=== PATIENT | male | born 1965 | race Caucasian/White ===

== ENCOUNTER 2019-12-20 23:35 | Inpatient (IN) | payer MEDICAID, OTHER ==
[~2019-12-20] VITALS: Ht 180.3 cm; Wt 87.6 kg
[2019-12-21] VITALS (7 sets, daily range): BP systolic 114–145; BP diastolic 63–102
[2019-12-21] MEDS ORDERED: IBUPROFEN 600 MG TAB PO ONE
[2019-12-21] MEDS ORDERED: InsuLIN REG 1unit/0.01ml Soln (100units/ml) IV ONE (00:15)
[2019-12-21] MEDS ORDERED: SODIUM CHLORIDE 0.9% 1,000 ML IV ONE ×2 (00:15→01:30)
[2019-12-21 00:35] LABS: Basophils # (auto) 0.1 10 ^3/uL (0-0.2); Basophils % (auto) 0.7 % (0.0-2.0); Eosinophils # (auto) 0 10 ^3/uL (0-0.8); Eosinophils % (auto) 0.4 % (0.0-7.0); Hematocrit 43.2 % (41.0-53.0); Hemoglobin 15.1 g/dL (13.5-17.5); Lymphocytes # (auto) 1.2 10 ^3/uL (0.4-5.4); Lymphocytes % (auto) 11.5 % (10.0-50.0); Mean Corpuscular Hgb Conc. 34.9 g/dL (32.0-36.0); Mean Corpuscular Volume 80.3 fL (80.0-100.0); Monocytes # (auto) 1.4 10 ^3/uL (0-1.3); Monocytes % (auto) 13.3 % (0.0-12.0); Neutrophils # (auto) 7.6 10 ^3/uL (1.6-8.6); Neutrophils % (auto) 74.1 % (37.0-80.0); Nucleated Red Blood Cells % 0.2 %; Platelet Count (auto) 133 10^3/uL (140-450); Red Blood Cells 5.37 10^6/uL (4.5-5.90); Red Cell Distribution Width 16.2 % (11.8-14.3); White Blood Cell 10.3 10^3/uL (4.4-10.8)
[2019-12-21 00:54] LABS: Alanine Aminotransferase 63 U/L (16-61); Albumin 2.7 g/dL (3.4-5.0); Amylase 46 U/L (25-115); Anion Gap 8 (5-15); Aspartate Aminotransferase 32 U/L (15-37); BUN/Creatinine Ratio 17.5; Blood Urea Nitrogen 18 mg/dL (7-18); Calcium 7.9 mg/dL (8.5-10.1); Carbon Dioxide 25 mmol/L (21-32); Chloride 95 mmol/L (98-107); GFR African American 96 mL/min; GFR Non-African American 79 mL/min; Glucose 370 mg/dL (74-106); Lipase 417 U/L (73-393); Potassium 3.8 mmol/L (3.5-5.1); Sodium 128 mmol/L (136-145)
[2019-12-21 00:59] LABS: Lactic Acid w/Reflex 3.1 mmol/L (0.4-2.0)
[2019-12-21 01:00] LABS: Alkaline Phosphatase 141 U/L (45-117); Bilirubin, Total 1.5 mg/dL (0.2-1.0); Total Protein 7.2 g/dL (6.4-8.2)
[2019-12-21] MEDS ORDERED: PIPERACILLIN-TAZOB 3.375GM 100 ML IV ONE (01:30)
[2019-12-21] MEDS ORDERED: VANCOMYCIN 1GM/250ML 250 ML IV ONE (01:30)
[2019-12-21 01:48] LABS: Urine Bacteria MANY /hpf (None Seen); Urine Blood 1+ /uL (Negative); Urine Specific Gravity 1.017 (1.001-1.035); Urine WBC 139 /hpf (0 - 3)
[2019-12-21] MEDS ORDERED: MORPHINE SULFATE 4 MG/ML SYR/VIAL IV ONE (02:00)
[2019-12-21] MEDS ORDERED: ONDANSETRON HCL 4 MG/2 ML VIAL IV ONE (02:00)
[2019-12-21] MEDS ORDERED: ACETAMINOPHEN 325 MG TAB PO ONE (02:00)
[2019-12-21] MEDS ORDERED: DEXTROSE (50%) 50ML SYRG IV PRN ×2 (02:45→10:15)
[2019-12-21] MEDS ORDERED: SODIUM CHLORIDE 0.9% 1,000 ML IV SCH (02:45)
[2019-12-21] MEDS ORDERED: VANCOMYCIN PER PHARMACY 0 MG IV SCH (02:45)
[2019-12-21] MEDS ORDERED: MORPHINE SULF INJ 2 MG/ML SYRINGE 1ML IV PRN (02:45)
[2019-12-21] MEDS ORDERED: ONDANSETRON HCL 4 MG/2 ML VIAL IV PRN (02:45)
[2019-12-21] MEDS ORDERED: NITROGLYCERIN 0.4 MG SL TAB SL PRN (02:45)
[2019-12-21] MEDS ORDERED: InsuLIN REG 1unit/0.01ml Soln (100units/ml) SC SCH (06:00)
[2019-12-21] MEDS ORDERED: metroNIDAZOLE 500MG/100ML 100 ML IV SCH (06:00)
[2019-12-21] MEDS ORDERED: METF-370 PO (06:11)
[2019-12-21] MEDS: ACCU-CHEK COMFORT CURVE STRIP VI SCH ×6 (06:12→21:05)
--- NOTE | 2019-12-21 07:25 | NUR ---
Opening Shift Note Assumed care of patient, awake and alert, No S/S of distress/SOB or pain. Respirations are even and unlabored. Updated on POC and instructed to call for assistance, patent verbalized understanding. Bed locked in lowest position, call light within reach, side rails up x2, safety precautions in place. Will continue to monitor for changes Q1hr and PRN.
--- NOTE | 2019-12-21 08:14 | NUR ---
left message with [facility]. no one able to take the call due to the holiday.
--- NOTE | 2019-12-21 08:53 | NUR ---
SPOKE WITH UROLOGIST DR. FREDDIE SALAZAR MD ON CT RESULTS, RECEIVED ORDERS TO PLACE 18F COUDE COOPER CATHETER IF PATIENT IS UNABLE TO VOID. PAIN MANAGEMENT AT THIS TIME, NO FURTHER ORDERS.
[2019-12-21] MEDS ORDERED: cefTRIAXone 1GM/50ML D5W 50 ML IV SCH ×2 (09:00)
--- NOTE | 2019-12-21 09:07 | NUR ---
URINE SENT TO LAB.
[2019-12-21] MEDS: PANTOPRAZOLE 40 MG TAB PO SCH (09:21)
[2019-12-21] MEDS: LACTULOSE 20Gm/30ML SOLN PO SCH (09:21)
[2019-12-21] MEDS: HYDROcodone-ACET 5/325MG TAB PO PRN ×2 (09:28→18:49)
[2019-12-21] MEDS: SODIUM CHLORIDE 0.9% 1,000 ML IV SCH ×2 (10:15→18:13)
[2019-12-21] MEDS ORDERED: TAMSULOSIN HYDROCHLORIDE 0.4 MG CAP PO ONE (10:15)
[2019-12-21] MEDS ORDERED: VANCOMYCIN 1,250 MG in D5W 5% 250 ML IV SCH (11:00)
--- NOTE | 2019-12-21 11:03 | NUR ---
DOWNGRADE TO [facility] TELE BOX SENT BACK TO ICU.
--- NOTE | 2019-12-21 11:50 | NUR ---
Nutrition Assessment Notes Please refer to link for full assessment notes. Est Energy needs: 4645-0573 kcals (25-30 kcal/kgBW) Est Protein needs: 56-70 gms/day (0.8-1.0 gm/kgBW) Will continue to monitor and reassess prn. Addendum: 12/21/19 at [address] Amended: Links added.
[2019-12-21] MEDS: InsuLIN REG 1unit/0.01ml Soln (100units/ml) SC SCH ×3 (12:13→21:08)
[2019-12-21] MEDS: MORPHINE SULF INJ 2 MG/ML SYRINGE 1ML IV PRN ×2 (12:25→23:31)
[2019-12-21] MEDS ORDERED: VANCOMYCIN 750mg/250ml 250 ML IV SCH (13:00)
--- NOTE | 2019-12-21 15:18 | NUR ---
PATIENT ROUNDS PATIENT IS RESTING WITH EYES CLOSED, NO S/S OF DISTRESS OR SOB. WILL CONTINUE TO MONITOR Q1HR AND PRN.
[2019-12-21] MEDS: ACETAMINOPHEN 325 MG TAB PO PRN (17:52)
[2019-12-21] MEDS: TAMSULOSIN HYDROCHLORIDE 0.4 MG CAP PO SCH (17:54)
--- NOTE | 2019-12-21 18:13 | NUR ---
PATIENT PULLED OUT IV BY ACCIDENT UPON ROUNDS, FOUND PATIENTS IV LAYING IN THE BED NEXT TO HIM. PATIENT UNAWARE. WILL ATTEMPT TO REINSERT IV.
[2019-12-21] MEDS ORDERED: MANNITOL FTV 25% 12.5 GM/50 ML 50 ML IV ONE (20:30)
--- NOTE | 2019-12-21 20:30 | NUR ---
IV insertion IV access obtained, via clean sterile technique by inserting 22 gauge catheter at left hand on first attempt. IV secured properly. No trauma to site. Patient tolerated well.
--- NOTE | 2019-12-21 21:41 | NUR ---
RECEIVED CALL FROM LAB REPORTING GRAM + COCCI IN CLUSTERS. WILL PAGE ON-CALL HOSP.
--- NOTE | 2019-12-21 21:55 | NUR ---
ON-CALL HOSP PAGED ON-CALL HOSP PAGED. AWAITING CALL BACK. WILL CONTINUE TO MONITOR.
--- NOTE | 2019-12-21 21:58 | NUR ---
RECEIVED CALL BACK FROM MD TALAMANTES UPDATED MD ON PATIENT'S NEW MICRO REPORT, PERSISTENT TEMPERATURE 100.1 ORAL F (FOR WHICH PATIENT RECENTLY INITIATED ON COOLING MEASURES AND FOR WHICH TYLENOL IS NOT DUE), AND URINALYSIS. UPDATED MD ON CURRENT ANTIBIOTIC. RECEIVED NEW ORDER, READ BACK AND VERIFIED. WILL CARRY OUT. WILL CONTINUE TO MONITOR PATIENT.
--- NOTE | 2019-12-21 22:00 | NUR ---
TEMP PATIENT'S ORAL TEMP 100 F ORAL. PRN FOR TYLENOL NOT YET DUE. ICE PACKS, BLANKETS REMOVED, ROOM COOLED. WILL CONTINUE TO MONITOR.
--- NOTE | 2019-12-21 22:06 | NUR ---
Merrem not available in orders Called after-hours pharmacy to request medication order. Pharmacist stated he will "enter into profile to start now and every 8 hours" and "discontinue Rocephin", per MD order. Will contact hot car charger to obtain medication.
[2019-12-21] MEDS ORDERED: MEROPENEM 1GM IVPB 50 ML IV SCH (22:15)
[2019-12-21] MEDS ORDERED: MEROPENEM 1GM IVPB 100 ML IV ONE (22:19)
[2019-12-21] MEDS: MEROPENEM 1GM IVPB 100 ML IV SCH (22:33)
--- NOTE | 2019-12-21 23:00 | NUR ---
TEMP RECHECK PATIENT ORAL TEMP 98.3. WILL CONTINUE TO MONITOR.
--- NOTE | 2019-12-21 23:00 | NUR ---
urine output via urinal 600ml clear medium-dark yellow urine. Will continue to monitor.
[2019-12-22] MEDS: SODIUM CHLORIDE 0.9% 1,000 ML IV SCH ×3 (00:56→17:49)
--- NOTE | 2019-12-22 02:00 | NUR ---
URINE OUTPUT 3OO ML OUTPUT LIGHT PADMA CLEAR URINE VIA. NO BLADDER DISTENSION. WILL CONTINUE TO MONITOR.
[2019-12-22] MEDS: HYDROcodone-ACET 5/325MG TAB PO PRN ×3 (02:49→13:11)
[2019-12-22] MEDS: ACETAMINOPHEN 325 MG TAB PO PRN ×3 (04:25→23:05)
--- NOTE | 2019-12-22 04:25 | NUR ---
TEMP PATIENT ORAL TEMP 100.8. INSTRUCTED PATIENT ON PURPOSE/INDICATION FOR INITIATING COOLING MEASURES AT THIS TIME, PATIENT VERBALIZED UNDERSTANDING AND IN AGREEMENT. SEE EMAR FOR ADMINISTRATION. WILL CONTINUE TO MONITOR.
[2019-12-22 05:00] VITALS: BP 122/75
--- NOTE | 2019-12-22 05:00 | NUR ---
URINE OUTPUT 325 ML URINE OUTPUT CLEAR LIGHT PADMA. NO BLADDER DISTENSION. NO C/O DISCOMFORT. WILL CONTINUE TO MONITOR.
[2019-12-22] MEDS: MEROPENEM 1GM IVPB 100 ML IV SCH (05:15)
--- NOTE | 2019-12-22 05:25 | NUR ---
TEMP RECHECK PATIENT'S ORAL TEMP 98.8 F. WILL CONTINUE TO MONITOR.
[2019-12-22] MEDS: ACCU-CHEK COMFORT CURVE STRIP VI SCH ×4 (06:00→21:45)
[2019-12-22] MEDS: InsuLIN REG 1unit/0.01ml Soln (100units/ml) SC SCH ×4 (06:03→22:00)
[2019-12-22] MEDS: MORPHINE SULF INJ 2 MG/ML SYRINGE 1ML IV PRN ×4 (06:06→21:41)
[2019-12-22 06:26] LABS: Basophils # (auto) 0 10 ^3/uL (0-0.2); Basophils % (auto) 0.5 % (0.0-2.0); Eosinophils # (auto) 0.1 10 ^3/uL (0-0.8); Eosinophils % (auto) 0.6 % (0.0-7.0); Hematocrit 35.8 % (41.0-53.0); Lymphocytes # (auto) 1.1 10 ^3/uL (0.4-5.4); Lymphocytes % (auto) 11.1 % (10.0-50.0); Mean Corpuscular Hemoglobin 28.7 pg (28.0-32.0); Mean Corpuscular Hgb Conc. 36.3 g/dL (32.0-36.0); Mean Corpuscular Volume 79.2 fL (80.0-100.0); Monocytes # (auto) 1.2 10 ^3/uL (0-1.3); Monocytes % (auto) 11.7 % (0.0-12.0); Neutrophils # (auto) 7.9 10 ^3/uL (1.6-8.6); Neutrophils % (auto) 76.1 % (37.0-80.0); Nucleated Red Blood Cells % 0.3 %; Platelet Count (auto) 133 10^3/uL (140-450); Red Blood Cells 4.52 10^6/uL (4.5-5.90); Red Cell Distribution Width 15.5 % (11.8-14.3); White Blood Cell 10.3 10^3/uL (4.4-10.8)
[2019-12-22 06:37] LABS: Albumin 2.3 g/dL (3.4-5.0); BUN/Creatinine Ratio 21.1; Calcium 7.7 mg/dL (8.5-10.1); Potassium 3.4 mmol/L (3.5-5.1)
[2019-12-22 06:47] LABS: Bilirubin, Total 1.2 mg/dL (0.2-1.0); Total Protein 6.2 g/dL (6.4-8.2)
--- NOTE | 2019-12-22 07:37 | NUR ---
Opening Shift Note Assumed care of patient, awake and alert. No S/S of distress/SOB or pain. Updated on POC and instructed to call for assistance PRN, patient verbalized understanding. Bed locked in lowest position, side rails up x2, call light within reach. Will continue to monitor for changes Q1hr and PRN.
[2019-12-22] MEDS ORDERED: VANCOMYCIN PER PHARMACY 0 MG IV SCH (08:45)
[2019-12-22 09:00] VITALS: BP 116/71
[2019-12-22] MEDS: LACTULOSE 20Gm/30ML SOLN PO SCH (09:06)
[2019-12-22] MEDS: PANTOPRAZOLE 40 MG TAB PO SCH (09:06)
[2019-12-22] MEDS: VANCOMYCIN 1GM/250ML 250 ML IV SCH ×2 (09:06→21:20)
[2019-12-22] MEDS ORDERED: POTASSIUM CHL 20 Meq TABLET PO ONE (10:30)
[2019-12-22] MEDS ORDERED: INSULIN LANTUS (GLARGINE) 1 /0.01ml (100units/ml) SC ONE (10:45)
[2019-12-22] MEDS: cefTRIAXone 1GM/50ML D5W 50 ML IV SCH (11:11)
--- NOTE | 2019-12-22 12:10 | NUR ---
TELE BOX REQUESTED
[2019-12-22 13:00] VITALS: BP 128/83
--- NOTE | 2019-12-22 13:00 | NUR ---
UPGRADE TO TELE PATIENT PLACED ON TELE MONITOR #[id number]
[2019-12-22 16:41] VITALS: BP 134/80
[2019-12-22] MEDS: TAMSULOSIN HYDROCHLORIDE 0.4 MG CAP PO SCH (16:58)
--- NOTE | 2019-12-22 18:59 | NUR ---
PATIENT ROUNDS PATIENT SITTING UP IN BED EATING DINNER. NO S/S OF DISTRESS OR SOB. RESPIRATIONS ARE EVEN AND UNLABORED. ENDORSED CARE TO IN SERVICE EDUCATION TEACHER RN.
--- NOTE | 2019-12-22 19:30 | NUR ---
Opening Shift Note Assumed care of patient, awake and alert. No S/S of distress/SOB and no c/o pain. Instructed on POC and to call for assist PRN, will continue to monitor for changes Q1hr and PRN. Bed in low position with HOB in Cuellar's position. PIV infusing w/o diff. Call light at pt's side. Television on.
[2019-12-22 21:30] VITALS: BP 160/93
--- NOTE | 2019-12-22 21:57 | NUR ---
Cooling measures, ice packs to bilat axillae and cool damp washcloths to forehead and neck, started for elev T of 101.2 orally. Morphine 1mg IV given slow push for pain 04/07. Pt states the morphine and norco "have done nothing all day." Acetaminophen 650mg po given for elev temp.
[2019-12-22] MEDS: INSULIN LANTUS (GLARGINE) 1 /0.01ml (100units/ml) SC SCH (22:00)
--- NOTE | 2019-12-22 23:55 | NUR ---
Hospitalist paged for pt's request for sleeping med and for reporting of elev. T and pain not controlled.
--- NOTE | 2019-12-23 00:42 | NUR ---
Gely Trotter, RN, PROCEDURE RN, hospitalist, returned page; H/H reported as abn but increased, pain not responding to med, elev. T. New orders received for Toradol 50mg i po x1 and Temazepam 15mg i po x1. Addendum: 12/23/19 at 0050 by MARY KAY LOZOYA RN Toradol incorrectly noted above; med ordered is tramadol 50mg.
[2019-12-23] MEDS ORDERED: traMADol HCL 50 MG TAB PO ONE (01:00)
[2019-12-23] MEDS: TEMAZEPAM 15 MG CAP PO PRN (01:09)
--- NOTE | 2019-12-23 01:38 | NUR ---
Pt took tramadol for 8 - 9/10 pain and restoril for sleep; room darkened,watching television.
[2019-12-23 05:00] VITALS: BP 131/77
[2019-12-23] MEDS: ACCU-CHEK COMFORT CURVE STRIP VI SCH ×4 (05:54→22:01)
[2019-12-23] MEDS: InsuLIN REG 1unit/0.01ml Soln (100units/ml) SC SCH ×4 (06:02→22:00)
[2019-12-23] MEDS: SODIUM CHLORIDE 0.9% 1,000 ML IV SCH ×3 (06:04→16:56)
[2019-12-23 06:07] LABS: Basophils # (auto) 0.1 10 ^3/uL (0-0.2); Basophils % (auto) 0.8 % (0.0-2.0); Eosinophils # (auto) 0.1 10 ^3/uL (0-0.8); Eosinophils % (auto) 1.1 % (0.0-7.0); Hematocrit 37.3 % (41.0-53.0); Hemoglobin 13.4 g/dL (13.5-17.5); Lymphocytes # (auto) 1.4 10 ^3/uL (0.4-5.4); Lymphocytes % (auto) 12.9 % (10.0-50.0); Mean Corpuscular Hemoglobin 28.6 pg (28.0-32.0); Mean Corpuscular Hgb Conc. 35.8 g/dL (32.0-36.0); Monocytes # (auto) 1.2 10 ^3/uL (0-1.3); Monocytes % (auto) 10.8 % (0.0-12.0); Neutrophils % (auto) 74.4 % (37.0-80.0); Nucleated Red Blood Cells % 0.3 %; Platelet Count (auto) 153 10^3/uL (140-450); Red Blood Cells 4.66 10^6/uL (4.5-5.90); Red Cell Distribution Width 15.6 % (11.8-14.3); White Blood Cell 10.7 10^3/uL (4.4-10.8)
[2019-12-23 06:33] LABS: Calcium 7.9 mg/dL (8.5-10.1); Potassium 3.7 mmol/L (3.5-5.1)
[2019-12-23 06:37] LABS: BUN/Creatinine Ratio 21.2
--- NOTE | 2019-12-23 07:20 | NUR ---
Opening Shift Note Assumed care of patient, resting with eyes closed. No S/S of distress/SOB or pain. Respirations are even and unlabored. Bed locked in lowest position, side rails up x2, call light within reach. Will continue to monitor for changes Q1hr and PRN.
[2019-12-23 08:42] VITALS: BP 132/81
[2019-12-23] MEDS: LACTULOSE 20Gm/30ML SOLN PO SCH (09:10)
[2019-12-23] MEDS: VANCOMYCIN 1GM/250ML 250 ML IV SCH ×2 (09:10→21:59)
[2019-12-23] MEDS: PANTOPRAZOLE 40 MG TAB PO SCH (09:10)
[2019-12-23] MEDS: HYDROcodone-ACET 5/325MG TAB PO PRN (09:15)
[2019-12-23] MEDS: cefTRIAXone 1GM/50ML D5W 50 ML IV SCH (12:14)
[2019-12-23] MEDS: traMADol HCL 50 MG TAB PO PRN ×2 (12:16→18:22)
[2019-12-23 12:30] VITALS: BP 151/85
[2019-12-23 17:00] VITALS: BP 157/99
[2019-12-23] MEDS: TAMSULOSIN HYDROCHLORIDE 0.4 MG CAP PO SCH (17:07)
--- NOTE | 2019-12-23 18:54 | NUR ---
PATIENT ROUNDS PATIENT SITTING UP IN BED EATING DINNER. NO S/S OF DISTRESS OR SOB. RESPIRATIONS ARE EVEN AND UNLABORED. ENDORSED CARE TO MASTER MOTORCYCLE TECHNICIAN RN.
--- NOTE | 2019-12-23 19:30 | NUR ---
Opening Shift Note Assumed care of patient, awake and alert. No S/S of distress/SOB or pain. Incrusted on POC and to call for assist PRN, will continue to monitor for changes Q1hr and PRN. Side rails up x2. Bed locked in lowest position. Call light within reach.
[2019-12-23 22:00] VITALS: BP 151/87
[2019-12-23] MEDS: INSULIN LANTUS (GLARGINE) 1 /0.01ml (100units/ml) SC SCH (22:00)
[2019-12-24] MEDS: traMADol HCL 50 MG TAB PO PRN ×2 (00:08→22:55)
[2019-12-24] MEDS: SODIUM CHLORIDE 0.9% 1,000 ML IV SCH ×3 (02:25→17:54)
[2019-12-24] MEDS: VANCOMYCIN 1GM/250ML 250 ML IV SCH ×3 (04:50→22:43)
[2019-12-24 05:00] VITALS: BP 126/75
--- NOTE | 2019-12-24 05:00 | NUR ---
Patient has not signed surgical consent forms. Patient verbalized "doctor has not explained anything to me yet"
[2019-12-24 05:56] LABS: Basophils # (auto) 0.1 10 ^3/uL (0-0.2); Basophils % (auto) 1.3 % (0.0-2.0); Eosinophils # (auto) 0.2 10 ^3/uL (0-0.8); Eosinophils % (auto) 1.9 % (0.0-7.0); Hematocrit 36.7 % (41.0-53.0); Hemoglobin 13.2 g/dL (13.5-17.5); Lymphocytes # (auto) 1.3 10 ^3/uL (0.4-5.4); Lymphocytes % (auto) 13.9 % (10.0-50.0); Mean Corpuscular Hemoglobin 28.7 pg (28.0-32.0); Mean Corpuscular Hgb Conc. 36.1 g/dL (32.0-36.0); Mean Corpuscular Volume 79.6 fL (80.0-100.0); Monocytes # (auto) 1.3 10 ^3/uL (0-1.3); Monocytes % (auto) 13.7 % (0.0-12.0); Neutrophils # (auto) 6.4 10 ^3/uL (1.6-8.6); Neutrophils % (auto) 69.2 % (37.0-80.0); Nucleated Red Blood Cells % 0.1 %; Platelet Count (auto) 185 10^3/uL (140-450); Red Blood Cells 4.61 10^6/uL (4.5-5.90); Red Cell Distribution Width 15.4 % (11.8-14.3); White Blood Cell 9.2 10^3/uL (4.4-10.8)
[2019-12-24 06:08] LABS: INR 1.14 (0.9-1.15); Partial Thromboplastin Time 32.2 sec (23.64-32.05)
[2019-12-24 06:15] LABS: BUN/Creatinine Ratio 18.8; Calcium 7.6 mg/dL (8.5-10.1); Potassium 3.5 mmol/L (3.5-5.1)
[2019-12-24] MEDS: InsuLIN REG 1unit/0.01ml Soln (100units/ml) SC SCH ×4 (06:28→22:58)
[2019-12-24] MEDS: ACCU-CHEK COMFORT CURVE STRIP VI SCH ×4 (06:29→22:56)
--- NOTE | 2019-12-24 07:33 | NUR ---
Endorsed care to day shift RN.
--- NOTE | 2019-12-24 08:07 | NUR ---
Received call from the blood bank. Patient has positive antibodies and if blood is needed they need to be notified a day ahead of time.
[2019-12-24 09:00] VITALS: BP 146/80
[2019-12-24] MEDS: PANTOPRAZOLE 40 MG TAB PO SCH (10:00)
[2019-12-24] MEDS: LACTULOSE 20Gm/30ML SOLN PO SCH (10:00)
[2019-12-24] MEDS: cefTRIAXone 1GM/50ML D5W 50 ML IV SCH (10:38)
--- NOTE | 2019-12-24 11:38 | NUR ---
Called pre-op to find out when the patient would go down for the lithotripsy because patient blood glucose was 220 and he is NPO. Per Jewell "don't medicate the patient for now". No insulin given.
--- NOTE | 2019-12-24 12:08 | NUR ---
assessment Patient is a 54 year old male who is alert and oriented. Patients cognitive abilities are intact. Prior to admission patient lived home with a friend and functioned independently. Patient informed me he is able to care for his own ADLs. Per patient he will return home to his prior living arrangements post discharge and family will transport him home. Patient informed me he came to ER for abdominal pain and has a kidney stone. Patient informed me he has no PCP. Steffi nowak to see patient for PCP. Patient has no post discharge needs identified. I informed patient he has a right to speak to a social sciences chair regarding all care. I informed patient he has a right to participate in any and all discharge planning. Patient does not have a POA and advanced directive. I have offered patient information on POA and advanced directives. I informed the patient the advantages and benefits of having an Advanced Directive. Patient verbalized understanding and agreed to discharge plan. Addendum: 12/25/19 at 1210 by Steffi DUVAL Amended: Links added.
[2019-12-24 13:00] VITALS: BP 144/94
--- NOTE | 2019-12-24 14:51 | NUR ---
Nutrition Followup Notes Pt wt is 87.6 kg. Pt was sleeping when rounded this morning. Pt with CCHO 45g diet with fair appetite aeb ave 75% PO intake over two meals. Pt with no noted distress per RN doc. Please note dietary suggestion noted below under Comments. Will continue to closely monitor pertinent labs, PO intake and skin status prn. Will followup in 3-5 days Est Energy needs: 1103-9992 kcals (25-30 kcal/kgBW) Est Protein needs: 56-70 gms/day (0.8-1.0 gm/kgBW) Will continue to monitor and reassess prn. LABS: GLUC 199 H, ALB 2.3 L GI: Last BM noted on 12-21 per RN doc BS: 22 low risk. Please refer to wound assessment report for full details. PES: Problem Altered nutrition related lab values r/t current medical condition aeb hyperglycemia, elev LFTs, mod hypoalbuminemia, hyponatremia, hypochloremia Comments Will continue to closely monitor pertinent labs, PO intake and skin status prn. Will followup in 3-5 days 1) Continue to closely monitor pt PO intake to meet at least 75% of meals 2) Suggest a CCHO 60g/2gNa Hepatic diet 3) Continue current plan of care
--- NOTE | 2019-12-24 15:14 | NUR ---
Received a call that the patient was positive for MRSA in the urine. Patient moved to room 205
[2019-12-24 17:00] VITALS: BP 139/87
[2019-12-24] MEDS: TAMSULOSIN HYDROCHLORIDE 0.4 MG CAP PO SCH (18:00)
--- NOTE | 2019-12-24 19:40 | NUR ---
PATIENT ATE DINNER WILL UPDATE OR
[2019-12-24] MEDS: MORPHINE SULF INJ 2 MG/ML SYRINGE 1ML IV PRN (20:44)
[2019-12-24 22:00] VITALS: BP 144/96
[2019-12-24] MEDS: INSULIN LANTUS (GLARGINE) 1 /0.01ml (100units/ml) SC SCH (22:57)
[2019-12-25] MEDS: MORPHINE SULF INJ 2 MG/ML SYRINGE 1ML IV PRN (01:42)
[2019-12-25] MEDS: TEMAZEPAM 15 MG CAP PO PRN (01:46)
[2019-12-25] MEDS: SODIUM CHLORIDE 0.9% 1,000 ML IV SCH ×2 (02:15→05:35)
[2019-12-25 04:30] VITALS: BP 153/100
[2019-12-25 05:10] VITALS: BP 134/79
[2019-12-25] MEDS: VANCOMYCIN 1GM/250ML 250 ML IV SCH (05:34)
[2019-12-25] MEDS: ACCU-CHEK COMFORT CURVE STRIP VI SCH ×2 (06:15→11:22)
[2019-12-25] MEDS: InsuLIN REG 1unit/0.01ml Soln (100units/ml) SC SCH ×2 (06:28→11:29)
[2019-12-25 06:30] LABS: Basophils # (auto) 0.1 10 ^3/uL (0-0.2); Basophils % (auto) 1.2 % (0.0-2.0); Eosinophils # (auto) 0.3 10 ^3/uL (0-0.8); Eosinophils % (auto) 3.5 % (0.0-7.0); Hematocrit 36.3 % (41.0-53.0); Hemoglobin 12.9 g/dL (13.5-17.5); Lymphocytes # (auto) 1.4 10 ^3/uL (0.4-5.4); Lymphocytes % (auto) 16.8 % (10.0-50.0); Mean Corpuscular Hemoglobin 28.3 pg (28.0-32.0); Mean Corpuscular Hgb Conc. 35.5 g/dL (32.0-36.0); Mean Corpuscular Volume 79.6 fL (80.0-100.0); Monocytes % (auto) 12.6 % (0.0-12.0); Neutrophils # (auto) 5.3 10 ^3/uL (1.6-8.6); Neutrophils % (auto) 65.9 % (37.0-80.0); Nucleated Red Blood Cells % 0.4 %; Platelet Count (auto) 204 10^3/uL (140-450); Red Blood Cells 4.56 10^6/uL (4.5-5.90); Red Cell Distribution Width 15.3 % (11.8-14.3)
[2019-12-25] MEDS: traMADol HCL 50 MG TAB PO PRN ×2 (06:30→12:10)
[2019-12-25 06:47] LABS: Calcium 7.8 mg/dL (8.5-10.1); Potassium 3.7 mmol/L (3.5-5.1)
[2019-12-25 08:00] VITALS: BP 152/88
[2019-12-25 09:00] VITALS: BP 152/88
[2019-12-25] MEDS: PANTOPRAZOLE 40 MG TAB PO SCH (09:59)
[2019-12-25] MEDS: LACTULOSE 20Gm/30ML SOLN PO SCH (10:00)
[2019-12-25] MEDS: cefTRIAXone 1GM/50ML D5W 50 ML IV SCH (11:22)
--- NOTE | 2019-12-25 11:50 | NUR ---
Discharge IV DC'd with sterile technique, catheter fully intact. Pressure dressing applied to site. Patient tolerated procedure well. Discharged with aftercare instructions per MD. Discharge instructions and medication prescriptions discussed with patients. Patient verbalize understanding of instructions and to call PCP for followup appointment. All patients belongings checked and paperwork signed. Removed patients wrist band.
== END 2019-12-25 12:50 | disposition home or self-care (01) | DRG 720 ==
LOC: ER 23:36 → TELE-CENTR 23:37 → TELE 23:37 → UNDOADMIN 23:37 → TELE-CENTR 12-21 03:50 → TELE 12-21 03:50 → CENTRAL 12-21 10:11 → TELE-CENTR 12-22 11:16
PROVIDERS: ADMIT Nurse Practitioner; ATTEND Internal Medicine
DX: A41.9 Sepsis, unspecified organism (principal); R18.8 Other ascites; K74.60 Unspecified cirrhosis of liver; D71 Functional disorders of polymorphonuclear neutrophils; E87.1 Hypo-osmolality and hyponatremia; R16.1 Splenomegaly, not elsewhere classified; B19.20 Unspecified viral hepatitis C without hepatic coma; N13.6 Pyonephrosis; E11.9 Type 2 diabetes mellitus without complications; K80.20 Calculus of gallbladder without cholecystitis without obstruction; F17.210 Nicotine dependence, cigarettes, uncomplicated; I10 Essential (primary) hypertension; K52.9 Noninfective gastroenteritis and colitis, unspecified; Z79.899 Other long term (current) drug therapy; Z85.118 Personal history of other malignant neoplasm of bronchus and lung; Z80.1 Family history of malignant neoplasm of trachea, bronchus and lung; B95.62 Methicillin resistant Staphylococcus aureus infection as the cause of diseases classified elsewhere
CPT/HCPCS: 36415; 71045; 74176; 80048; 80053; 80202; 81001; 82010; 82140; 82150; 82962; 83036; 83605; 83690; 84484; 85025; 85610; 85730; 86850; 86870; 86900; 86901; 87040; 87077; 87086; 87088; 87147; 87186; 93005; 96361; 96365; 96367; 96375; G0378; J0696; J1815; J2185; J2405; J2543; J3490; J7060

== ENCOUNTER 2020-05-07 13:42 | Inpatient (IN) | payer MEDICAID ==
[~2020-05-07] VITALS: Ht 175.3 cm; Wt 93.8 kg
[~2020-05-07 13:42] MED LIST: METF-370 PO
[2020-05-07] MEDS ORDERED: PANTOPRAZOLE 40 MG/10 ML VIAL INJ IV ONE ×2 (14:45→23:15)
[2020-05-07] MEDS ORDERED: SODIUM CHLORIDE 0.9% 1,000 ML IVB ONE (14:45)
[2020-05-07] MEDS ORDERED: ONDANSETRON HCL 4 MG/2 ML VIAL IV ONE (14:45)
[2020-05-07] MEDS ORDERED: PANTOPRAZOLE 40mg/50ML NS AE 50 ML IV ONE ×2 (14:45→19:00)
[2020-05-07 14:57] LABS: Basophils # (auto) 0.1 10 ^3/uL (0-0.2); Basophils % (auto) 0.4 % (0.0-2.0); Eosinophils # (auto) 0.1 10 ^3/uL (0-0.8); Eosinophils % (auto) 0.3 % (0.0-7.0); Hemoglobin 8.6 g/dL (13.5-17.5); Lymphocytes # (auto) 3.4 10 ^3/uL (0.4-5.4); Lymphocytes % (auto) 14.3 % (10.0-50.0); Mean Corpuscular Hemoglobin 30.1 pg (28.0-32.0); Mean Corpuscular Hgb Conc. 34.2 g/dL (32.0-36.0); Mean Corpuscular Volume 87.9 fL (80.0-100.0); Monocytes # (auto) 1.7 10 ^3/uL (0-1.3); Monocytes % (auto) 7.1 % (0.0-12.0); Neutrophils # (auto) 18.3 10 ^3/uL (1.6-8.6); Neutrophils % (auto) 77.9 % (37.0-80.0); Nucleated Red Blood Cells % 0.6 %; Platelet Count (auto) 251 10^3/uL (140-450); Red Blood Cells 2.84 10^6/uL (4.5-5.90); Red Cell Distribution Width 14.8 % (11.8-14.3); White Blood Cell 23.5 10^3/uL (4.4-10.8)
[2020-05-07 15:12] LABS: INR 1.21 (0.9-1.15)
[2020-05-07 15:14] LABS: Albumin 2.5 g/dL (3.4-5.0); Anion Gap 12 (5-15); Blood Urea Nitrogen 76 mg/dL (7-18); Calcium 8.1 mg/dL (8.5-10.1); Carbon Dioxide 22 mmol/L (21-32); Chloride 100 mmol/L (98-107); Sodium 134 mmol/L (136-145)
[2020-05-07 15:20] LABS: Alanine Aminotransferase 84 U/L (16-61); Alkaline Phosphatase 123 U/L (45-117); Aspartate Aminotransferase 74 U/L (15-37); BUN/Creatinine Ratio 53.1; Bilirubin, Total 1.3 mg/dL (0.2-1.0); GFR African American 66 mL/min; GFR Non-African American 54 mL/min; Total Protein 5.2 g/dL (6.4-8.2)
[2020-05-07 15:31] LABS: Glucose 468 mg/dL (74-106)
[2020-05-07 16:07] LABS: Lactic Acid w/Reflex 6.8 mmol/L (0.4-2.0)
[2020-05-07] MEDS ORDERED: metroNIDAZOLE 500MG/100ML 100 ML IV ONE (16:15)
[2020-05-07] MEDS ORDERED: cefTRIAXone 1GM/50ML D5W 50 ML IV ONE (16:15)
[2020-05-07] MEDS ORDERED: InsuLIN REG 1unit/0.01ml Soln (100units/ml) IV ONE (17:15)
[2020-05-07] MEDS ORDERED: SODIUM CHLORIDE 0.9% 1,000 ML IV ONE (17:15)
[2020-05-07 18:32] LABS: Urine Bacteria NONE SEEN /hpf (None Seen); Urine Blood Negative /uL (Negative); Urine Hyaline Cast FEW /lpf (0 - 2); Urine Specific Gravity 1.017 (1.001-1.035); Urine WBC 1 /hpf (0 - 3)
[2020-05-07] MEDS ORDERED: OCTREOTIDE ACETATE 500 MCG in SODIUM CHL 0.9% 99 ML IV SCH (19:00)
[2020-05-07] MEDS ORDERED: MORPHINE SULF INJ 2 MG/ML SYRINGE 1ML IV PRN (19:00)
[2020-05-07] MEDS ORDERED: NITROGLYCERIN 0.4 MG SL TAB SL PRN (19:00)
[2020-05-07] MEDS ORDERED: OCTREOTIDE ACETATE 100 MCG in SODIUM CHL 0.9% 50 ML IV ONE (19:00)
[2020-05-07] MEDS ORDERED: DEXTROSE (50%) 50ML SYRG IV PRN (19:45)
[2020-05-07] MEDS ORDERED: OCTREOTIDE ACETATE 100 MCG/ML VL ONE (20:25)
[2020-05-07] MEDS ORDERED: OCTREOTIDE ACETATE 500 MCG/ML VL ONE (20:25)
[2020-05-07] MEDS: SODIUM CHLORIDE 0.9% 1,000 ML IV SCH (21:00)
[2020-05-07 21:56] LABS: Basophils # (auto) 0.1 10 ^3/uL (0-0.2); Eosinophils # (auto) 0.1 10 ^3/uL (0-0.8); Monocytes # (auto) 1.2 10 ^3/uL (0-1.3); White Blood Cell 18.9 10^3/uL (4.4-10.8)
[2020-05-07 21:59] LABS: Basophils % (auto) 0.4 % (0.0-2.0); Eosinophils % (auto) 0.5 % (0.0-7.0); Hematocrit 20.4 % (41.0-53.0); Hemoglobin 7.3 g/dL (13.5-17.5); Lymphocytes % (auto) 15.7 % (10.0-50.0); Mean Corpuscular Hemoglobin 31.3 pg (28.0-32.0); Mean Corpuscular Hgb Conc. 35.6 g/dL (32.0-36.0); Monocytes % (auto) 6.6 % (0.0-12.0); Neutrophils # (auto) 14.5 10 ^3/uL (1.6-8.6); Neutrophils % (auto) 76.8 % (37.0-80.0); Nucleated Red Blood Cells % 0.5 %; Platelet Count (auto) 203 10^3/uL (140-450); Red Blood Cells 2.32 10^6/uL (4.5-5.90); Red Cell Distribution Width 15.3 % (11.8-14.3)
[2020-05-07 22:00] VITALS: BP 103/64
[2020-05-07 22:16] LABS: Albumin 2.3 g/dL (3.4-5.0); BUN/Creatinine Ratio 59.1; Calcium 7.8 mg/dL (8.5-10.1); Magnesium 1.7 mg/dL (1.6-2.6); Potassium 4.5 mmol/L (3.5-5.1)
[2020-05-07 22:19] LABS: Total Protein 4.8 g/dL (6.4-8.2)
[2020-05-08] VITALS (11 sets, daily range): BP systolic 88–122; BP diastolic 50–68
[2020-05-08] MEDS: InsuLIN REG 1unit/0.01ml Soln (100units/ml) SC SCH ×4 (00:16→18:00)
[2020-05-08] MEDS: PANTOPRAZOLE 40mg/50ML NS AE 50 ML IV SCH ×5 (00:45→21:22)
[2020-05-08] MEDS: metroNIDAZOLE 500MG/100ML 100 ML IV SCH ×4 (02:35→21:23)
[2020-05-08] MEDS: SODIUM CHLORIDE 0.9% 1,000 ML IV SCH ×4 (02:36→23:09)
[2020-05-08] MEDS: ACCU-CHEK COMFORT CURVE STRIP VI SCH ×4 (02:36→18:00)
[2020-05-08] MEDS ORDERED: INSULIN LANTUS (GLARGINE) 1 /0.01ml (100units/ml) SC ONE (02:45)
[2020-05-08 04:05] LABS: INR 1.32 (0.9-1.15)
[2020-05-08 04:09] LABS: Albumin 2.3 g/dL (3.4-5.0); Calcium 7.7 mg/dL (8.5-10.1); Potassium 3.9 mmol/L (3.5-5.1)
[2020-05-08 04:12] LABS: BUN/Creatinine Ratio 65.8; Bilirubin, Total 0.8 mg/dL (0.2-1.0); Total Protein 4.7 g/dL (6.4-8.2)
[2020-05-08 04:33] LABS: Alcohol, Urine < 3.0 mg/dL (0-10); Amphetamine Screen, Urine POSITIVE (NEGATIVE); Barbiturate Scree,Urine NEGATIVE (NEGATIVE); Benzodiazephine Screen, Urine NEGATIVE (NEGATIVE); Cannabinoid Screen, Urine NEGATIVE (NEGATIVE); Cocaine Screen, Urine NEGATIVE (NEGATIVE); Phencyclidine Screen, Urine NEGATIVE (NEGATIVE)
[2020-05-08 04:40] LABS: Opiate Scree,Urine NEGATIVE (NEGATIVE)
[2020-05-08] MEDS: OCTREOTIDE ACETATE 500 MCG in SODIUM CHL 0.9% 99 ML IV SCH ×2 (10:00→19:15)
[2020-05-08] MEDS: INSULIN LANTUS (GLARGINE) 1 /0.01ml (100units/ml) SC SCH (10:00)
[2020-05-08] MEDS: cefTRIAXone 1GM/50ML D5W 50 ML IV SCH (10:01)
[2020-05-08 10:48] LABS: Basophils # (auto) 0.1 10 ^3/uL (0-0.2); Eosinophils # (auto) 0.2 10 ^3/uL (0-0.8); Mean Corpuscular Volume 88.6 fL (80.0-100.0)
[2020-05-08 10:50] LABS: Basophils % (auto) 0.7 % (0.0-2.0); Eosinophils % (auto) 1.6 % (0.0-7.0); Lymphocytes # (auto) 2.4 10 ^3/uL (0.4-5.4); Lymphocytes % (auto) 18.2 % (10.0-50.0); Monocytes # (auto) 1.2 10 ^3/uL (0-1.3); Monocytes % (auto) 8.9 % (0.0-12.0); Neutrophils # (auto) 9.1 10 ^3/uL (1.6-8.6); Neutrophils % (auto) 70.6 % (37.0-80.0); Nucleated Red Blood Cells % 0.2 %; Platelet Count (auto) 156 10^3/uL (140-450); Red Blood Cells 2.03 10^6/uL (4.5-5.90); Red Cell Distribution Width 15.8 % (11.8-14.3)
[2020-05-08 10:53] LABS: Hemoglobin 6.3 g/dL (13.5-17.5)
[2020-05-08 17:34] LABS: Hematocrit 20.4 % (41.0-53.0)
[2020-05-09] VITALS (18 sets, daily range): BP systolic 89–139; BP diastolic 57–96
[2020-05-09 04:35] LABS: Basophils # (auto) 0.1 10 ^3/uL (0-0.2); Monocytes # (auto) 0.7 10 ^3/uL (0-1.3); White Blood Cell 7.5 10^3/uL (4.4-10.8)
[2020-05-09 04:37] LABS: Basophils % (auto) 0.7 % (0.0-2.0); Eosinophils # (auto) 0.3 10 ^3/uL (0-0.8); Eosinophils % (auto) 4.1 % (0.0-7.0); Hematocrit 18.7 % (41.0-53.0); Lymphocytes # (auto) 1.7 10 ^3/uL (0.4-5.4); Lymphocytes % (auto) 22.9 % (10.0-50.0); Mean Corpuscular Hgb Conc. 35.3 g/dL (32.0-36.0); Mean Corpuscular Volume 90.6 fL (80.0-100.0); Monocytes % (auto) 9.1 % (0.0-12.0); Neutrophils # (auto) 4.8 10 ^3/uL (1.6-8.6); Neutrophils % (auto) 63.2 % (37.0-80.0); Nucleated Red Blood Cells % 0.2 %; Platelet Count (auto) 116 10^3/uL (140-450); Red Blood Cells 2.07 10^6/uL (4.5-5.90); Red Cell Distribution Width 16.2 % (11.8-14.3)
[2020-05-09 04:39] LABS: Hemoglobin 6.6 g/dL (13.5-17.5)
[2020-05-09 04:56] LABS: Potassium 3.6 mmol/L (3.5-5.1)
[2020-05-09 05:04] LABS: Albumin 2.1 g/dL (3.4-5.0); BUN/Creatinine Ratio 61.8; Bilirubin, Total 0.7 mg/dL (0.2-1.0); Calcium 7.1 mg/dL (8.5-10.1); Magnesium 2.2 mg/dL (1.6-2.6); Total Protein 4.2 g/dL (6.4-8.2)
[2020-05-09] MEDS: SODIUM CHLORIDE 0.9% 1,000 ML IV SCH ×4 (05:58→21:00)
[2020-05-09] MEDS: PANTOPRAZOLE 40mg/50ML NS AE 50 ML IV SCH ×5 (05:58→21:45)
[2020-05-09] MEDS: ACCU-CHEK COMFORT CURVE STRIP VI SCH ×5 (05:58→23:32)
[2020-05-09] MEDS: metroNIDAZOLE 500MG/100ML 100 ML IV SCH ×3 (05:59→22:00)
[2020-05-09] MEDS: InsuLIN REG 1unit/0.01ml Soln (100units/ml) SC SCH ×5 (06:00→23:32)
[2020-05-09] MEDS ORDERED: diphenhdrAMINE HCL 50 MG/1 ML VL ONE (08:11)
[2020-05-09] MEDS ORDERED: SODIUM CHLORIDE LOCK 0 ML ONE (08:11)
[2020-05-09] MEDS ORDERED: LIDOCAINE VISCOUS 2% 15ML UD ONE (08:11)
[2020-05-09] MEDS ORDERED: NALOXONE HCL 0.4 MG/ML VIAL ONE (08:11)
[2020-05-09] MEDS ORDERED: MIDAZOLAM HCL 5 MG/ML-1ML VIAL ONE (08:11)
[2020-05-09] MEDS ORDERED: FLUMAZENIL 0.1 MG/ML INJ 10ML MDV IV ONE (08:11)
[2020-05-09] MEDS ORDERED: SIMETHICONE 40 MG/0.6 ML ORAL DROP ONE (08:14)
[2020-05-09] MEDS: OCTREOTIDE ACETATE 500 MCG in SODIUM CHL 0.9% 99 ML IV SCH (08:15)
[2020-05-09] MEDS: MIDAZOLAM HCL 5 MG/ML-1ML VIAL ONE ×3 (08:49→08:55)
[2020-05-09] MEDS: fentaNYL CITRATE 100 MCG/2 ML VL ONE ×3 (08:49→08:55)
[2020-05-09] MEDS ORDERED: fentaNYL CITRATE 100 MCG/2 ML VL ONE (08:54)
[2020-05-09] MEDS ORDERED: SODIUM CHLORIDE LOCK 10 ML ONE (08:54)
[2020-05-09] MEDS: INSULIN LANTUS (GLARGINE) 1 /0.01ml (100units/ml) SC SCH (10:00)
[2020-05-09] MEDS: cefTRIAXone 1GM/50ML D5W 50 ML IV SCH (10:27)
[2020-05-09 12:57] LABS: Hemoglobin 7.7 g/dL (13.5-17.5)
[2020-05-09 13:04] LABS: Hematocrit 22.7 % (41.0-53.0)
[2020-05-10] VITALS (9 sets, daily range): BP systolic 115–141; BP diastolic 56–95
[2020-05-10] MEDS: PANTOPRAZOLE 40mg/50ML NS AE 50 ML IV SCH ×2 (02:45→08:38)
[2020-05-10 03:12] LABS: Basophils # (auto) 0 10 ^3/uL (0-0.2); Eosinophils # (auto) 0.2 10 ^3/uL (0-0.8); Mean Corpuscular Volume 89.7 fL (80.0-100.0); Monocytes # (auto) 0.5 10 ^3/uL (0-1.3); Monocytes % (auto) 8.7 % (0.0-12.0); Nucleated Red Blood Cells % 0.2 %; Platelet Count (auto) 106 10^3/uL (140-450)
[2020-05-10 03:13] LABS: Basophils % (auto) 0.8 % (0.0-2.0); Eosinophils % (auto) 3.7 % (0.0-7.0); Hematocrit 18.6 % (41.0-53.0); Lymphocytes # (auto) 1.1 10 ^3/uL (0.4-5.4); Lymphocytes % (auto) 18.1 % (10.0-50.0); Mean Corpuscular Hemoglobin 31.6 pg (28.0-32.0); Mean Corpuscular Hgb Conc. 35.3 g/dL (32.0-36.0); Neutrophils % (auto) 68.7 % (37.0-80.0); Red Blood Cells 2.08 10^6/uL (4.5-5.90); White Blood Cell 5.9 10^3/uL (4.4-10.8)
[2020-05-10 03:26] LABS: Hemoglobin 6.6 g/dL (13.5-17.5)
[2020-05-10 03:32] LABS: Calcium 6.1 mg/dL (8.5-10.1); Magnesium 1.9 mg/dL (1.6-2.6)
[2020-05-10 03:34] LABS: BUN/Creatinine Ratio 48.2
[2020-05-10] MEDS: ACCU-CHEK COMFORT CURVE STRIP VI SCH ×4 (05:02→23:27)
[2020-05-10] MEDS: InsuLIN REG 1unit/0.01ml Soln (100units/ml) SC SCH ×4 (05:02→23:27)
[2020-05-10] MEDS: metroNIDAZOLE 500MG/100ML 100 ML IV SCH ×3 (05:04→22:36)
[2020-05-10] MEDS: SODIUM CHLORIDE 0.9% 1,000 ML IV SCH ×3 (07:00→22:36)
[2020-05-10] MEDS: POTASSIUM CHL 20MEQ/100ML 100 ML IV SCH ×2 (08:25→10:14)
[2020-05-10] MEDS ORDERED: diphenhdrAMINE HCL 25 MG CAP PO PRN (08:45)
[2020-05-10] MEDS: PANTOPRAZOLE 40 MG TAB PO SCH (09:37)
[2020-05-10] MEDS: PROPRANOLOL HCL 20 MG TAB PO SCH ×2 (09:37→22:37)
[2020-05-10] MEDS: cefTRIAXone 1GM/50ML D5W 50 ML IV SCH (09:38)
[2020-05-10] MEDS: INSULIN LANTUS (GLARGINE) 1 /0.01ml (100units/ml) SC SCH (10:07)
[2020-05-10 15:33] LABS: Hematocrit 25.6 % (41.0-53.0); Hemoglobin 8.8 g/dL (13.5-17.5)
[2020-05-11] VITALS: BP 117/83
[2020-05-11] MEDS: SODIUM CHLORIDE 0.9% 1,000 ML IV SCH ×2 (00:03→04:21)
[2020-05-11 03:48] LABS: Basophils # (auto) 0.1 10 ^3/uL (0-0.2); Eosinophils # (auto) 0.3 10 ^3/uL (0-0.8); Eosinophils % (auto) 3.9 % (0.0-7.0); Hematocrit 26.1 % (41.0-53.0); Hemoglobin 9.1 g/dL (13.5-17.5); Lymphocytes # (auto) 1.6 10 ^3/uL (0.4-5.4); Lymphocytes % (auto) 20.1 % (10.0-50.0); Mean Corpuscular Hemoglobin 30.5 pg (28.0-32.0); Mean Corpuscular Hgb Conc. 34.7 g/dL (32.0-36.0); Mean Corpuscular Volume 87.8 fL (80.0-100.0); Monocytes # (auto) 0.8 10 ^3/uL (0-1.3); Monocytes % (auto) 9.8 % (0.0-12.0); Neutrophils # (auto) 5.3 10 ^3/uL (1.6-8.6); Neutrophils % (auto) 65.2 % (37.0-80.0); Nucleated Red Blood Cells % 0.3 %; Platelet Count (auto) 151 10^3/uL (140-450); Red Blood Cells 2.97 10^6/uL (4.5-5.90); Red Cell Distribution Width 16.4 % (11.8-14.3); White Blood Cell 8.2 10^3/uL (4.4-10.8)
[2020-05-11 04:00] VITALS: BP 102/61
[2020-05-11 04:30] LABS: Calcium 7.1 mg/dL (8.5-10.1); Potassium 3.6 mmol/L (3.5-5.1)
[2020-05-11 04:36] LABS: Albumin 2.4 g/dL (3.4-5.0); BUN/Creatinine Ratio 24.3; Bilirubin, Total 1.5 mg/dL (0.2-1.0); Magnesium 2.3 mg/dL (1.6-2.6); Total Protein 5.1 g/dL (6.4-8.2)
[2020-05-11] MEDS: InsuLIN REG 1unit/0.01ml Soln (100units/ml) SC SCH ×2 (05:58→12:00)
[2020-05-11] MEDS: metroNIDAZOLE 500MG/100ML 100 ML IV SCH ×2 (05:59→14:19)
[2020-05-11] MEDS: ACCU-CHEK COMFORT CURVE STRIP VI SCH ×2 (05:59→12:00)
[2020-05-11 08:00] VITALS: BP 104/67
[2020-05-11] MEDS ORDERED: LACTULOSE 20Gm/30ML SOLN PO ONE (08:45)
[2020-05-11] MEDS: cefTRIAXone 1GM/50ML D5W 50 ML IV SCH (09:07)
[2020-05-11] MEDS: PROPRANOLOL HCL 20 MG TAB PO SCH (09:21)
[2020-05-11] MEDS: PANTOPRAZOLE 40 MG TAB PO SCH (09:21)
[2020-05-11] MEDS: INSULIN LANTUS (GLARGINE) 1 /0.01ml (100units/ml) SC SCH (10:00)
[2020-05-11 12:00] VITALS: BP 112/77
[2020-05-11 16:00] VITALS: BP 142/93
[2020-05-11] MEDS ORDERED: PANT40TA2 PO (16:44)
[2020-05-11] MEDS ORDERED: PROP60CA34 PO (16:45)
[2020-05-11] MEDS ORDERED: GLIP5TAB12 PO (16:49)
[2020-05-11] MEDS ORDERED: LACT10PA2 PO (16:50)
[2020-05-11 17:01] VITALS: BP 129/90
== END 2020-05-11 18:40 | disposition home or self-care (01) | DRG 720 ==
LOC: EDBD 13:42 → ER 13:42 → TELE 13:43 → DOU IN ICU 21:50
PROVIDERS: ADMIT Internal Medicine; ATTEND Internal Medicine
PROC: 30233N1 Transfusion of Nonautologous Red Blood Cells into Peripheral Vein, Percutaneous Approach (ICD-10-PCS; 2020-05-08)
PROC: 06L38CZ Occlusion of Esophageal Vein with Extraluminal Device, Via Natural or Artificial Opening Endoscopic (ICD-10-PCS; principal; 2020-05-09 08:15)
DX: A41.9 Sepsis, unspecified organism (principal); K70.31 Alcoholic cirrhosis of liver with ascites; K80.20 Calculus of gallbladder without cholecystitis without obstruction; E11.65 Type 2 diabetes mellitus with hyperglycemia; F15.10 Other stimulant abuse, uncomplicated; F17.210 Nicotine dependence, cigarettes, uncomplicated; R16.1 Splenomegaly, not elsewhere classified; E88.09 Other disorders of plasma-protein metabolism, not elsewhere classified; K59.00 Constipation, unspecified; N20.0 Calculus of kidney; I85.11 Secondary esophageal varices with bleeding; B19.20 Unspecified viral hepatitis C without hepatic coma; D62 Acute posthemorrhagic anemia; D68.9 Coagulation defect, unspecified; K52.9 Noninfective gastroenteritis and colitis, unspecified; I10 Essential (primary) hypertension; F32.9 Major depressive disorder, single episode, unspecified; Z82.49 Family history of ischemic heart disease and other diseases of the circulatory system; Z83.3 Family history of diabetes mellitus; Z80.1 Family history of malignant neoplasm of trachea, bronchus and lung; Z79.899 Other long term (current) drug therapy; N17.0 Acute kidney failure with tubular necrosis; E44.1 Mild protein-calorie malnutrition
CPT/HCPCS: 36415; 43244; 71046; 74021; 74176; 76700; 80048; 80053; 80307; 81001; 82150; 82962; 83036; 83605; 83690; 83735; 84132; 84484; 85014; 85018; 85025; 85610; 85730; 86850; 86870; 86900; 86901; 86902; 86922; 87040; 93005; C9113; G0378; J0696; J1815; J2250; J2405; J3480; J3490

== ENCOUNTER 2020-05-25 00:39 | Inpatient (IN) | payer MEDICAID ==
[~2020-05-25] VITALS: Ht 180.3 cm; Wt 86.0 kg
[~2020-05-25 00:39] MED LIST changes: +GLIP5TAB12 PO; +LACT10PA2 PO; +PANT40TA2 PO; +PROP60CA34 PO
[2020-05-25] MEDS ORDERED: FUROSEMIDE 40 MG/4 ML VIAL IV ONE (03:15)
[2020-05-25] MEDS ORDERED: SPIRONOLACTONE 25 MG TAB PO ONE (03:15)
[2020-05-25 03:45] LABS: Basophils # (auto) 0.1 10 ^3/uL (0-0.2); Basophils % (auto) 1.2 % (0.0-2.0); Eosinophils # (auto) 0.1 10 ^3/uL (0-0.8); Eosinophils % (auto) 0.6 % (0.0-7.0); Hematocrit 31.1 % (41.0-53.0); Hemoglobin 9.9 g/dL (13.5-17.5); Lymphocytes # (auto) 1.1 10 ^3/uL (0.4-5.4); Lymphocytes % (auto) 13.9 % (10.0-50.0); Mean Corpuscular Hemoglobin 25.4 pg (28.0-32.0); Mean Corpuscular Hgb Conc. 31.7 g/dL (32.0-36.0); Mean Corpuscular Volume 79.9 fL (80.0-100.0); Monocytes # (auto) 1.1 10 ^3/uL (0-1.3); Monocytes % (auto) 14.4 % (0.0-12.0); Neutrophils # (auto) 5.6 10 ^3/uL (1.6-8.6); Neutrophils % (auto) 69.9 % (37.0-80.0); Nucleated Red Blood Cells % 0.6 %; Platelet Count (auto) 116 10^3/uL (140-450); Red Blood Cells 3.88 10^6/uL (4.5-5.90); Red Cell Distribution Width 18.6 % (11.8-14.3)
[2020-05-25 03:50] LABS: INR 1.06 (0.9-1.15); Partial Thromboplastin Time 27.9 sec (23.0-31.2)
[2020-05-25 03:52] LABS: Calcium 8.5 mg/dL (8.5-10.1); Potassium 3.6 mmol/L (3.5-5.1)
[2020-05-25 03:54] LABS: BUN/Creatinine Ratio 13.2; Bilirubin, Total 2.9 mg/dL (0.2-1.0); Total Protein 6.6 g/dL (6.4-8.2)
[2020-05-25] MEDS ORDERED: MORPHINE SULF INJ 2 MG/ML SYRINGE 1ML IV PRN (08:00)
[2020-05-25] MEDS ORDERED: NITROGLYCERIN 0.4 MG SL TAB SL PRN (08:00)
[2020-05-25] MEDS ORDERED: DEXTROSE (50%) 50ML SYRG IV PRN (08:00)
[2020-05-25] MEDS: SPIRONOLACTONE 25 MG TAB PO SCH ×2 (08:15→10:00)
[2020-05-25] MEDS: FUROSEMIDE 40 MG/4 ML VIAL IV SCH ×2 (08:15→08:54)
[2020-05-25] MEDS ORDERED: FUROSEMIDE 40 MG/4 ML VIAL IV SCH (10:00)
[2020-05-25] MEDS ORDERED: SPIRONOLACTONE 25 MG TAB PO SCH (10:00)
[2020-05-25] MEDS ORDERED: PROPRANOLOL HCL 20 MG TAB PO SCH (10:00)
[2020-05-25] MEDS ORDERED: PROP10TA57 PO (10:30)
[2020-05-25] MEDS ORDERED: LACT10SO60 PO (10:30)
[2020-05-25] MEDS: ACCU-CHEK COMFORT CURVE STRIP VI SCH ×2 (12:12→17:24)
[2020-05-25] MEDS: InsuLIN REG 1unit/0.01ml Soln (100units/ml) SC SCH ×2 (12:12→17:25)
[2020-05-25 20:05] VITALS: BP 116/76
[2020-05-25] MEDS ORDERED: SPIR100T PO (20:11)
[2020-05-25] MEDS ORDERED: FURO1TAB31 PO (20:11)
[2020-05-25 20:57] VITALS: BP 116/76
[2020-05-25 21:30] VITALS: BP 116/76
[2020-05-25] MEDS ORDERED: InsuLIN REG 1unit/0.01ml Soln (100units/ml) SC SCH (22:00)
== END 2020-05-25 22:30 | disposition home health service (06) | DRG 280 ==
LOC: ER 00:46 → OVERFLOW 00:47 → CENTRAL 20:00
PROVIDERS: ADMIT Internal Medicine; ATTEND Internal Medicine
PROC: 0W9G3ZZ Drainage of Peritoneal Cavity, Percutaneous Approach (ICD-10-PCS; principal; 2020-05-25)
DX: K70.31 Alcoholic cirrhosis of liver with ascites (principal); M51.36 Other intervertebral disc degeneration, lumbar region; F32.9 Major depressive disorder, single episode, unspecified; F17.210 Nicotine dependence, cigarettes, uncomplicated; K21.9 Gastro-esophageal reflux disease without esophagitis; N20.0 Calculus of kidney; K80.20 Calculus of gallbladder without cholecystitis without obstruction; F15.10 Other stimulant abuse, uncomplicated; N50.89 Other specified disorders of the male genital organs; I85.10 Secondary esophageal varices without bleeding; K72.10 Chronic hepatic failure without coma; B18.2 Chronic viral hepatitis C; Z83.3 Family history of diabetes mellitus; Z82.49 Family history of ischemic heart disease and other diseases of the circulatory system; Z79.84 Long term (current) use of oral hypoglycemic drugs; Z79.899 Other long term (current) drug therapy; Z80.1 Family history of malignant neoplasm of trachea, bronchus and lung; E11.65 Type 2 diabetes mellitus with hyperglycemia; K72.90 Hepatic failure, unspecified without coma; R16.1 Splenomegaly, not elsewhere classified
CPT/HCPCS: 10022; 36415; 74176; 76705; 76942; 80053; 82140; 85025; 85610; 85730; 87081; 87205; 89051; G0378; J1815

== ENCOUNTER 2020-08-01 22:31 | Inpatient (IN) | payer MEDICAID ==
[~2020-08-01] VITALS: Ht 182.9 cm; Wt 45.4 kg
[~2020-08-01 22:31] MED LIST changes: +FURO1TAB31 PO; -LACT10PA2 PO; +LACT10SO60 PO; +PROP10TA57 PO; -PROP60CA34 PO; +SPIR100T PO
[2020-08-01] MEDS ORDERED: DEXTROSE (50%) 50ML SYRG IV PRN (23:15)
[2020-08-01] MEDS: SODIUM CHLORIDE 0.9% 1,000 ML IV SCH (23:15)
[2020-08-01] MEDS ORDERED: InsuLIN R (HUMAN) 100 UNITS in SODIUM CHL 0.9% 99 ML IV SCH (23:15)
[2020-08-01] MEDS ORDERED: SODIUM CHLORIDE 0.9% 1,000 ML IV ONE (23:30)
[2020-08-01] MEDS ORDERED: InsuLIN REG 1unit/0.01ml Soln (100units/ml) ONE ×2 (23:39→23:55)
[2020-08-01] MEDS: ACCU-CHEK COMFORT CURVE STRIP VI SCH (23:42)
[2020-08-02] MEDS: SODIUM CHLORIDE 0.9% 1,000 ML IV SCH (01:15)
[2020-08-02 01:30] LABS: Basophils # (auto) 0 10 ^3/uL (0-0.2); Basophils % (auto) 0.3 % (0.0-2.0); Eosinophils # (auto) 0 10 ^3/uL (0-0.8); Eosinophils % (auto) 0.1 % (0.0-7.0); Hematocrit 23.4 % (41.0-53.0); Hemoglobin 7.3 g/dL (13.5-17.5); Monocytes # (auto) 0.2 10 ^3/uL (0-1.3); Red Blood Cells 3.54 10^6/uL (4.5-5.90)
[2020-08-02 01:32] LABS: Lymphocytes # (auto) 1.7 10 ^3/uL (0.4-5.4); Lymphocytes % (auto) 17.1 % (10.0-50.0); Mean Corpuscular Hemoglobin 20.5 pg (28.0-32.0); Mean Corpuscular Volume 66.2 fL (80.0-100.0); Monocytes % (auto) 1.7 % (0.0-12.0); Neutrophils # (auto) 7.8 10 ^3/uL (1.6-8.6); Neutrophils % (auto) 80.8 % (37.0-80.0); Platelet Count (auto) 185 10^3/uL (140-450); Red Cell Distribution Width 18.9 % (11.8-14.3); White Blood Cell 9.7 10^3/uL (4.4-10.8)
[2020-08-02 01:44] LABS: Albumin 2.5 g/dL (3.4-5.0); Anion Gap 13 (5-15); Blood Urea Nitrogen 67 mg/dL (7-18); Calcium 8.4 mg/dL (8.5-10.1); Carbon Dioxide 19 mmol/L (21-32); Chloride 97 mmol/L (98-107); Sodium 129 mmol/L (136-145)
[2020-08-02 01:46] LABS: Alanine Aminotransferase 77 U/L (16-61); Aspartate Aminotransferase 67 U/L (15-37); GFR African American 68 mL/min; GFR Non-African American 56 mL/min
[2020-08-02 01:47] LABS: Lactic Acid w/Reflex 7.6 mmol/L (0.4-2.0)
[2020-08-02 01:48] LABS: Alkaline Phosphatase 182 U/L (45-117); Bilirubin, Total 0.5 mg/dL (0.2-1.0); Phosphorus 1.8 mg/dL (2.5-4.90)
[2020-08-02] MEDS: ACCU-CHEK COMFORT CURVE STRIP VI SCH ×7 (01:50→10:20)
[2020-08-02 02:01] LABS: Glucose 697 mg/dL (74-106); Potassium 6.2 mmol/L (3.5-5.1)
[2020-08-02 02:02] LABS: BUN/Creatinine Ratio 48.2
[2020-08-02 02:15] LABS: Urine Bacteria NONE SEEN /hpf (None Seen); Urine Blood Negative /uL (Negative); Urine Specific Gravity 1.022 (1.001-1.035); Urine WBC <1 /hpf (0 - 3)
[2020-08-02] MEDS ORDERED: SODIUM BICARBONATE 8.4% INJ 50ML SYRINGE IV ONE ×2 (02:15→10:41)
[2020-08-02] MEDS ORDERED: LACTULOSE 20Gm/30ML SOLN PO ONE (02:15)
[2020-08-02] MEDS ORDERED: SODIUM ZIRCONIUM CYCL 10 GM PAK PO ONE (02:15)
[2020-08-02] MEDS ORDERED: SODIUM CHLORIDE 0.9% 1,000 ML IV ONE ×3 (02:15→10:30)
[2020-08-02] MEDS ORDERED: InsuLIN REG 1unit/0.01ml Soln (100units/ml) IV ONE ×3 (02:15→08:45)
[2020-08-02] MEDS ORDERED: SODIUM CHLORIDE 0.9% 1,000 ML IV SCH ×2 (03:15→05:15)
[2020-08-02] MEDS ORDERED: LACTULOSE 20Gm/30ML SOLN PR ONE (03:30)
[2020-08-02] MEDS ORDERED: LORazepam 2MG/ML-1ML VIAL ONE (04:44)
[2020-08-02] MEDS ORDERED: diphenhdrAMINE HCL 50 MG/1 ML VL ONE (04:44)
[2020-08-02] MEDS ORDERED: LORazepam 2MG/ML-1ML VIAL IV ONE (05:15)
[2020-08-02] MEDS ORDERED: diphenhdrAMINE HCL 50 MG/1 ML VL IV ONE (05:15)
[2020-08-02 06:43] LABS: Calcium 8.6 mg/dL (8.5-10.1)
[2020-08-02 06:51] LABS: BUN/Creatinine Ratio 45.9
[2020-08-02 06:54] LABS: Potassium 5.9 mmol/L (3.5-5.1)
[2020-08-02 07:29] LABS: Basophils # (auto) 0.1 10 ^3/uL (0-0.2); Eosinophils # (auto) 0 10 ^3/uL (0-0.8); Eosinophils % (auto) 0.1 % (0.0-7.0); Platelet Count (auto) 211 10^3/uL (140-450); White Blood Cell 16.1 10^3/uL (4.4-10.8)
[2020-08-02 07:31] LABS: Basophils % (auto) 0.7 % (0.0-2.0); Hematocrit 21.4 % (41.0-53.0); Lymphocytes # (auto) 3.1 10 ^3/uL (0.4-5.4); Mean Corpuscular Hemoglobin 20.5 pg (28.0-32.0); Mean Corpuscular Volume 68.3 fL (80.0-100.0); Monocytes # (auto) 0.6 10 ^3/uL (0-1.3); Monocytes % (auto) 3.9 % (0.0-12.0); Neutrophils # (auto) 12.3 10 ^3/uL (1.6-8.6); Neutrophils % (auto) 76.3 % (37.0-80.0); Nucleated Red Blood Cells % 0.2 %; Red Blood Cells 3.13 10^6/uL (4.5-5.90); Red Cell Distribution Width 18.7 % (11.8-14.3)
[2020-08-02] MEDS ORDERED: PIPERACILLIN-TAZOB 3.375GM 100 ML IV SCH (08:00)
[2020-08-02 08:07] LABS: Hemoglobin 6.4 g/dL (13.5-17.5)
[2020-08-02] MEDS ORDERED: ETOMIDATE (2MG/ML) 20ML VIAL IV ONE ×2 (08:11→11:00)
[2020-08-02] MEDS ORDERED: SUCCINYLCHOLINE CHLORIDE 20 MG/ML 10ML VIAL IV ONE ×3 (08:11→11:15)
[2020-08-02] MEDS ORDERED: InsuLIN R (HUMAN) 100 UNITS in SODIUM CHL 0.9% 99 ML IV SCH (08:15)
[2020-08-02] MEDS ORDERED: SODIUM BICARBONATE 8.4% INJ 50ML SYRINGE ONE ×3 (08:38→10:33)
[2020-08-02 09:00] VITALS: BP 88/39
[2020-08-02] MEDS ORDERED: OCTREOTIDE ACETATE IV ONE (09:00)
[2020-08-02] MEDS ORDERED: OCTREOTIDE ACETATE 500 MCG in SODIUM CHL 0.9% 99 ML IV SCH ×2 (09:00→09:30)
[2020-08-02] MEDS ORDERED: PANTOPRAZOLE 40 MG/10 ML VIAL INJ IV ONE (09:00)
[2020-08-02] MEDS ORDERED: PANTOPRAZOLE 40mg/50ML NS AE 50 ML IV SCH ×2 (09:00→09:30)
[2020-08-02] MEDS ORDERED: SODIUM CHL 0.9% IV ONE (09:00)
[2020-08-02 09:08] LABS: INR 1.36 (0.9-1.15); Partial Thromboplastin Time 28.3 sec (23.0-31.2)
[2020-08-02] MEDS ORDERED: MIDAZOLAM DRIP 50 mg/50mL 50 ML IV ONE (09:17)
[2020-08-02] MEDS ORDERED: PIPERACILLIN-TAZOB 3.375GM 100 ML IV ONE (09:30)
[2020-08-02] MEDS ORDERED: NOREPINEPHRINE 8 MG/250ML KIT 250 ML IV ONE (09:30)
[2020-08-02] MEDS ORDERED: SOD CHL 0.45% 1,000 ML IV SCH (09:45)
[2020-08-02] MEDS ORDERED: EPINEPHrine HCL 250 ML IV ONE (09:51)
[2020-08-02 09:55] LABS: Creatinine, Urine 23 mg/dL (30.0-125.0); Sodium Urine 9 mmol/L (40-220)
[2020-08-02] MEDS ORDERED: ZINC SULFATE 220mg CAP or TAB PO SCH (10:00)
[2020-08-02] MEDS ORDERED: ASCORBIC ACID 500 MG TAB PO SCH (10:00)
[2020-08-02] MEDS ORDERED: EPINEPHrine HCL 250 ML IV SCH (10:00)
[2020-08-02] MEDS ORDERED: CHOLECALCIFEROL (VITD3) 2,000 UNIT CAP PO SCH (10:00)
[2020-08-02 10:12] VITALS: BP 44/21
[2020-08-02 10:21] VITALS: BP 91/48
[2020-08-02] MEDS ORDERED: SODIUM BICARBONATE 8.4 % INJ 50ML VIAL IV ONE ×3 (10:30→11:15)
[2020-08-02 10:36] VITALS: BP 129/87
[2020-08-02] MEDS ORDERED: EPINEPHrine HCL 1 MG/10 ML SYRG IV ONE (10:41)
[2020-08-02] MEDS ORDERED: NALOXONE HCL 1MG/ML 2ML SYRINGE IV ONE (10:41)
[2020-08-02] MEDS ORDERED: CALCIUM CHL(10%) 100MG/ML 10ML VIAL IV ONE (10:41)
[2020-08-02] MEDS ORDERED: NOREPINEPHRINE 8 MG/250ML KIT 250 ML IV SCH ×2 (11:30)
[2020-08-02] MEDS ORDERED: MIDAZOLAM DRIP 50 mg/50mL 50 ML IV SCH (11:30)
[2020-08-02] MEDS ORDERED: LACTULOSE 20Gm/30ML SOLN PO SCH (12:00)
[2020-08-02] MEDS ORDERED: LACTULOSE 10g/15ml SOLN PR SCH (12:00)
[2020-08-02] MEDS ORDERED: LACTULOSE 20Gm/30ML SOLN NG SCH (12:00)
[2020-08-02] MEDS ORDERED: CLINDAMYCIN 600MG IV 50 ML IV SCH (14:00)
[2020-08-02] MEDS ORDERED: PANTOPRAZOLE 40 MG/10 ML VIAL INJ IV SCH (22:00)
[2020-08-04 12:25] LABS: Hepatitis A Ab IgM Negative; Hepatitis B Core IgM Negative; Hepatitis B Surface Antigen Negative (Negative)
[2020-08-04 12:28] LABS: Hepatitis C Antibody Positive (Negative)
== END 2020-08-02 10:42 | DRG 720 ==
LOC: EDBD 22:31 → ER 22:34 → OVERFLOW 22:35
PROVIDERS: ADMIT Hospitalist; ATTEND Hospitalist
PROC: 30233N1 Transfusion of Nonautologous Red Blood Cells into Peripheral Vein, Percutaneous Approach (ICD-10-PCS; principal; 2020-08-02)
PROC: 5A12012 Performance of Cardiac Output, Single, Manual (ICD-10-PCS; 2020-08-02)
PROC: 0BH17EZ Insertion of Endotracheal Airway into Trachea, Via Natural or Artificial Opening (ICD-10-PCS; 2020-08-02)
PROC: 5A1935Z Respiratory Ventilation, Less than 24 Consecutive Hours (ICD-10-PCS; 2020-08-02)
PROC: 06HY33Z Insertion of Infusion Device into Lower Vein, Percutaneous Approach (ICD-10-PCS; 2020-08-02)
DX: A41.89 Other specified sepsis (principal); U07.1 COVID-19; D64.9 Anemia, unspecified; E11.10 Type 2 diabetes mellitus with ketoacidosis without coma; E87.5 Hyperkalemia; F17.210 Nicotine dependence, cigarettes, uncomplicated; I46.9 Cardiac arrest, cause unspecified; J96.90 Respiratory failure, unspecified, unspecified whether with hypoxia or hypercapnia; K70.30 Alcoholic cirrhosis of liver without ascites; K72.90 Hepatic failure, unspecified without coma; N17.9 Acute kidney failure, unspecified; R65.21 Severe sepsis with septic shock; Z80.1 Family history of malignant neoplasm of trachea, bronchus and lung; Z82.49 Family history of ischemic heart disease and other diseases of the circulatory system; Z83.3 Family history of diabetes mellitus; F32.9 Major depressive disorder, single episode, unspecified
CPT/HCPCS: 31500; 36415; 36430; 36600; 70450; 71045; 74176; 80048; 80053; 80074; 80320; 81001; 82010; 82140; 82570; 82805; 82962; 83605; 83735; 83930; 84100; 84300; 84484; 85025; 85610; 85730; 86850; 86870; 86900; 86901; 86902; 86922; 87426; 92950; 93005; 94002; 96365; 96366; 96375; 99291; G0378; J0171; J0330; J1815; J2250; J2543